=== PATIENT | male | born 1980 | race African-American/Black ===

== ENCOUNTER 2023-08-10 12:12 | Emergency (ER) | payer MEDICAID ==
[~2023-08-10] VITALS: Ht 182.9 cm; Wt 84.0 kg
[2023-08-10 12:16] VITALS: TEMP 97.9
[2023-08-10] MEDS: CEFTRIAXONE 1GM/50ML 50 ML IV ONE (12:30)
[2023-08-10] MEDS: TETANUS, DIPHTHERIA, PERTUSSIS VAC/PF 0.5ML (>10YR OLD) IM ONE (12:30)
[2023-08-10] MEDS: ONDANSETRON HCL 4MG/2ML INJ IV ONE (12:49)
[2023-08-10] MEDS: MORPHINE SULFATE 4 MG/ML INJ (FOR IV/IM USE) IV ONE (12:50)
[2023-08-10 13:09] LABS: BASOPHILS % 0.4 % (0.0-2.0); EOSINOPHILS % 3.1 % (0.0-5.0); HEMATOCRIT. 39.8 % (42.0-52.0); LYMPHOCYTES % 31.3 % (20.0-50.0); MEAN CORPUSCULAR HEMOGLOBIN 30.4 pg (28.0-32.0); MEAN CORPUSCULAR HGB CONC 32.8 g/dL (31.0-37.0); MEAN CORPUSCULAR VOLUME 92.8 fL (80.0-94.0); MEAN PLATELET VOLUME 8.2 fl (7.4-10.4); MONOCYTES % 7.1 % (2.0-8.0); NEUTROPHILS % 58.1 % (40.0-76.0); PLATELET 215 x1000/uL (130-400); RED BLOOD CELL COUNT 4.29 mill/uL (4.7-6.1); RED CELL DISTRIBUTION WIDTH 12.6 % (11.6-14.6)
[2023-08-10 13:24] LABS: CHLORIDE 109 mEq/L (98-107); POTASSIUM 4.1 mEq/L (3.5-5.1); SODIUM 140 mEq/L (136-145)
[2023-08-10 13:25] LABS: CALCIUM 9.2 mg/dL (8.7-10.4); CARBON DIOXIDE 26 mEq/L (21-32)
[2023-08-10 13:30] LABS: CREATININE 0.9 mg/dL (0.6-1.3); GLUCOSE 106 mg/dL (70-105); UREA NITROGEN BLOOD 11 mg/dL (9-23)
[2023-08-10 13:32] LABS: ALANINE AMINOTRANSFERASE 25 IU/L (10-49); ALBUMIN 4.6 g/dL (3.2-4.8); ASPARTATE AMINOTRANSFERASE 22 IU/L (<34); BILIRUBIN DIRECT 0.1 mg/dL (<=3.0); BILIRUBIN TOTAL 0.4 mg/dL (0.1-1.0)
[2023-08-10 13:33] LABS: PROTEIN TOTAL 7.1 g/dL (6.0-8.3)
[2023-08-10 13:40] LABS: PROTHROMBIN TIME 10.7 sec (9.6-11.0)
[2023-08-10] MEDS: IOHEXOL-350 100 ML BOTTLE ONE (14:37)
[2023-08-10] MEDS: MORPHINE SULFATE 2 MG/ML CPJ (NOT FOR IM USE) IV ONE (15:39)
[2023-08-10] MEDS: KETAMINE HCL 50 MG/ML 10ML IV NR (17:42)
[2023-08-10 17:44] VITALS: O2SAT 98
[2023-08-10] MEDS ORDERED: VANCOMYCIN 1G PREMIX 250 ML IV NR (18:00)
[2023-08-10] MEDS ORDERED: GENTAMICIN 100MG PREMIX 100 ML IV NR (18:00)
[2023-08-10] MEDS ORDERED: GENTAMICIN 100MG PREMIX 50 ML IV NR (18:10)
[2023-08-10 18:44] VITALS: BP 134/69; PULSE 73; RESP 18
== END 2023-08-10 19:05 | disposition short-term general hospital (02) ==
LOC: ER 12:12
DX: S82.452B Displaced comminuted fracture of shaft of left fibula, initial encounter for open fracture type I or II (principal); R56.9 Unspecified convulsions; W11.XXXA Fall on and from ladder, initial encounter; Y93.89 Activity, other specified; Y92.89 Other specified places as the place of occurrence of the external cause; Y99.8 Other external cause status
CPT/HCPCS: 80076; 80048; 85025; 85610; 36415; 70450; 71260; 72125; 73700; 74177; 90715; 90471; 96365; 96375; 96376; 99152; 99291; 99292; Q9967; J0696; J3490; J2405; J3370; J2270 ×2; Z7610 ×4; J1580